=== PATIENT | female | born 1940 | race Caucasian/White ===

== ENCOUNTER 2016-12-04 12:52 | Inpatient (IN) | payer MEDICARE ==
[~2016-12-04] VITALS: Ht 157.5 cm; Wt 62.4 kg
[2016-12-22] MEDS ORDERED: CRAN500C9 PO (11:56)
[2016-12-22] MEDS ORDERED: VITA-136 PO (11:56)
[2016-12-22] MEDS ORDERED: FOSI10TA PO (11:56)
[2016-12-22] MEDS ORDERED: OMEP20TA PO (11:56)
[2016-12-22] MEDS ORDERED: ROSU10 PO (11:56)
[2016-12-22] MEDS ORDERED: ASPI81TA5 PO (11:56)
[2016-12-22] MEDS ORDERED: MULT-65 PO (11:56)
[2016-12-22] MEDS ORDERED: NIAC500T5 PO (11:56)
[2016-12-22] MEDS ORDERED: GARL580C PO (11:56)
[2016-12-22] MEDS ORDERED: CARB200T PO (11:56)
[2016-12-22] MEDS ORDERED: BYST5TAB2 PO (11:56)
[2016-12-22] MEDS ORDERED: LEVO25TA4 PO (11:56)
[2016-12-22] MEDS ORDERED: CELE200C PO (11:56)
[2016-12-22] MEDS ORDERED: FLUC100T2 PO (11:56)
[2016-12-22] MEDS ORDERED: CALC1TAB87 PO (11:56)
[2016-12-22] MEDS ORDERED: VITACAP7 PO (11:56)
[2016-12-24] MEDS ORDERED: CHLORHEXIDINE GLUCONATE 2 % 1 PACK (2 CLOTHS) TOPICAL PRN (06:00)
[2016-12-24] MEDS ORDERED: ceFAZolin 2 GM PREMIX 50 ML IV SCH (06:00)
[2016-12-24] MEDS ORDERED: SODIUM CHLORID 0.9% 500 ML IV PRN (06:00)
[2016-12-24] MEDS ORDERED: METOPROLOL TARTRATE 25 MG TAB PO PRN (06:00)
[2016-12-24] MEDS ORDERED: INSULIN HUMAN REGULAR 1,000 UNITS/10 ML VIAL SQ PRN (06:00)
[2016-12-24] MEDS ORDERED: POVIDONE IODINE 5% (ANTISEPSIS KIT) 4 APPLICATIONS EACH NARE PRN (06:00)
[2016-12-24] MEDS ORDERED: POVIDONE IODINE 7.5% SCRUB 118 ML BOTTLE TOPICAL SCH (06:00)
[2016-12-24] MEDS ORDERED: DEXAMETHASONE SOD PHOS 20 MG/5 ML VIAL IV ONE (06:30)
[2016-12-24] MEDS: LACTATED RINGER'S 1000 ML IV PRN ×2 (06:30→06:40)
[2016-12-24] MEDS: VANCOMYCIN 1000 MG/NS 250 ML (for <70 kg) IV SCH ×4 (06:50→07:05)
--- NOTE | 2016-12-24 07:15 | HHI.DCPOC ---
Discharge Care Plan Diagnosis: (1) Primary localized osteoarthrosis, lower leg (2) Status post total knee replacement, right Your Health Problems Are: Difficulty with ADL Goals to Promote Your Health * To prevent worsening of your condition and complications * To maintain your health at the optimal level Directions to Meet Your Goals Take your medications as prescribed Follow your dietary instruction Follow activity as directed Keep your appointments as scheduled Take your immunizations and boosters as scheduled If your symptoms worsen call your PCP, if no PCP go to Urgent Care Center or Emergency Room Smoking is Dangerous to Your Health. Avoid second hand smoke Call the 24-hour hour crisis hotline for domestic abuse at Landon Metz Dec 24, 2016 07:15
--- NOTE | 2016-12-24 07:16 | HHI.FF ---
Face to Face Verification Diagnosis: (1) Primary localized osteoarthrosis, lower leg (2) Status post total knee replacement, right Physical Therapy Gait training, Transfer training, bed to chair Knee: Total knee Right LE Weight Bearing: WB as tolerated Right LE Range of Motion: Active ROM Nursing Nursing: Conner teaching, Dressing changes Dressing Changes: Daily dressing change I have seen patient Tamia Guzman on 12/24/16. My clinical findings support the need for the requested home health care services because: Limited ability to care for self High risk of falls I certify that my clinical findings support that this patient is homebound because: Post-op weakness Unsteady gait/balance Landon Metz Dec 24, 2016 07:16
[2016-12-24] MEDS ORDERED: CPMMACHINE (07:18)
[2016-12-24] MEDS ORDERED: WALKER WHEELS/F1 MIS (07:18)
[2016-12-24] MEDS ORDERED: COMMODE 3-IN-11 MIS (07:18)
[2016-12-24] MEDS ORDERED: APREPITANT 40 MG CAP ONE (07:32)
[2016-12-24] MEDS ORDERED: GENTAMICIN SULFATE 80 MG/2 ML VIAL ONE (07:34)
[2016-12-24] MEDS ORDERED: TRANEXAMIC ACID IV SCH ×2 (08:30→12:00)
[2016-12-24] MEDS ORDERED: SODIUM CHLORIDE 0.9% IV SCH ×2 (08:30→12:00)
[2016-12-24] MEDS ORDERED: ROPIVACAINE PERI-ARTICULAR INJECTION. P-ARTICULR SCH ×5 (08:30)
[2016-12-24] MEDS ORDERED: BUPIVACAINE LIPOSOME PF 1.3% 20 ML VIAL ONE (09:10)
[2016-12-24] MEDS ORDERED: ALUMINUM/MAGNESIUM/SIMETH 30 ML CUP PO PRN (10:00)
[2016-12-24] MEDS ORDERED: Post-op Orders (for Pharmacy) MISC XX ONE (10:00)
[2016-12-24] MEDS ORDERED: BISACODYL 10 MG SUPP RECTAL PRN (10:00)
[2016-12-24] MEDS ORDERED: SODIUM CHLORIDE 0.9% FLUSH 5 ML FLUSH IVF PRN (10:00)
[2016-12-24] MEDS ORDERED: ONDANSETRON HCL 4 MG/2 ML VIAL IVP PRN (10:00)
[2016-12-24] MEDS ORDERED: traMADol HCL 50 MG TAB PO PRN ×2 (10:00)
[2016-12-24] MEDS ORDERED: diphenhydrAMINE HCL 50 MG/ML VIAL IV PRN (10:00)
[2016-12-24] MEDS ORDERED: NALOXONE HCL 0.4 MG/ML AMP IV PRN (10:00)
[2016-12-24] MEDS ORDERED: ACETAMINOPHEN 325 MG TAB PO PRN (10:00)
[2016-12-24] MEDS ORDERED: MORPHINE SULFATE 4 MG/ML INJ IV PUSH PRN (10:00)
[2016-12-24] MEDS ORDERED: MAGNESIUM HYDROXIDE SUSP 30 ML CUP PO PRN (10:00)
--- NOTE | 2016-12-24 10:05 | PD.OP ---
cc: Owen Caceres MD Operative Report Date of Surgery: Dec 24, 2016 Preoperative Diagnosis: Right knee severe osteoarthritis Postoperative Diagnosis: Same Procedure: Right total knee arthroplasty Anesthesia: Spinal and adductor canal block Surgeon: Owen Caceres Mangle Roll Operator(s): PAULETTE Saeed The surgical procedure was assisted by my Advanced Registered Nurse Practitioner. My SURGICAL COORDINATOR presence was necessary throughout this case for the manipulation and positioning of the surgical extremity. My SURGICAL COORDINATOR was assisting me throughout the duration of this procedure. The skill set of an Advance Registered Nurse Practitioner was medically necessary to complete this procedure. During the surgical case, the corporate technical recruiter was working at the back table and the Advance Registered Nurse Practitioner was directly assisting me. Operation and Findings: IMPLANTS: DePuy Attune: Patella: size 32. Femur, posterior stabilized size 5. Tibia, rotating platform size 4. Tibial insert, rotating platform, posterior stabilized size 6 mm thickness. ESTIMATED BLOOD LOSS: 150 cc TOURNIQUET TIME: 36 minutes at 250 mmHg pressure. JUSTIFICATION FOR PROCEDURE: The patient has end-stage osteoarthritis to the knee. There is an attached conservative measures pathway form in the chart that describes the nonoperative measures that were undertaken prior to consideration of surgical management. The patient understood the risks and benefits of surgical management. See my office notes for further details PROCEDURE: The patient was brought back to the operative theatre. Adequate anesthesia was obtained. The patient received intravenous vancomycin and Ancef. The lower extremity was prepped and draped in the usual sterile fashion.The leg was exsanguinated, the tourniquet was raised. A standard anterior incision was performed followed by medial parapatellar arthrotomy was performed. End-stage arthritis was identified. Osteotomy of the patella was performed. We drilled holes for the patella. We trialed the patella component. We placed an intramedullary guide into the distal femur. We ultimately resected 13 mm off of the distal femur in 5 degrees of valgus. The remnants of the ACL and PCL were resected. Osteotomy of the proximal tibia was performed, resecting 5 mm off of the medial side. This was done with 3 degrees of posterior slope using an extramedullary guide. The distal end of the guide was placed in the mid aspect of the ankle. The femur was sized, and four chamfer cuts were completed in 3 of external rotation. We then cut the central box in the distal femur to replace the PCL. We resected the remnants of the menisci and removed osteophytes off of the femur and tibia. We then trialed the knee. We punched the tibia for the keel, and then used standard technique to cement in components. Excess cement was removed. We trialed the knee again and the final polyethylene thickness was chosen to provide extension to 0 degrees, and flexion of 140 degrees to gravity. The ligaments were appropriately balanced. Lateral release was necessary to obtain excellent patellofemoral tracking. The tourniquet was released and adequate hemostasis was obtained. An intra- articular injection of a ropivacaine cocktail was injected. The posterior knee was inspected for excess cement, which was removed. The final polyethylene was put into position after thorough irrigation. We then closed deep fascia with a #2 Stratafix followed by skin with 2-0 Vicryl followed by mihai. Postop plan is to weight-bear as tolerated. DVT prophylaxis will be performed with Rina, JOSÉ MIGUEL fair, early mobilization, and Lovenox followed by aspirin. Owen Caceres MD Dec 24, 2016 10:05
[2016-12-24] MEDS ORDERED: ENOX40P SQ (10:07)
[2016-12-24] MEDS ORDERED: ASPI325T PO (10:07)
[2016-12-24] MEDS ORDERED: ULTR50TA5 PO (10:07)
[2016-12-24] MEDS ORDERED: DO NOT ADM ANY ANTICOAGULANT DRUGS PRN (10:26)
--- NOTE | 2016-12-24 10:29 | PD.CONS ---
HPI Service [facility] Hospitalists Consult Requested By Dr. Owen Caceres Reason for Consult Medical management Primary Care Physician Deedee Gardner M.D. Diagnoses: History of Present Illness Mrs. Guzman is a 76 y/o female with HTN, Hyperlipidemia, Hypothyroidism and osteoarthritis. She was admitted to [facility] on 12/24/16 for right total knee arthroplasty which was performed by Dr. Caceres. [facility] Hospitalist team was consulted to help with medical management. Pt is seen post-operatively and is without any specific complaints. Pt states that she is on Fosinopril and Bystolic for her BP. She also takes Tegretol but for a reported hx of trigeminal neuralgia and ?[place] palsy. She is doing well post-operatively She does not have a catheter in place. She reports that her pain is controlled currently. Pt requests to have Tylenol #3 instead of the Ultram. She has had adverse reactions to Percocet and [place] previously with feeling "foggy headed and confused." Pt is planned for discharge to home with [facility] possible tomorrow. Review of Systems Constitutional: DENIES: Fever, Chills Eyes: DENIES: Vision loss Ears, nose, mouth, throat: DENIES: Hearing loss Respiratory: DENIES: Cough, Shortness of breath Cardiovascular: DENIES: Chest pain, Lower Extremity Edema Gastrointestinal: DENIES: Abdominal pain, Nausea, Vomiting Genitourinary: DENIES: Hematuria, Dysuria Musculoskeletal: DENIES: Back pain Integumentary: DENIES: Rash Neurologic: DENIES: Headache Psychiatric: DENIES: Confusion Past Family Social History Past Medical History HTN Hyperlipidemia Hypothyroidism Osteoarthritis Trigeminal Neuralgia Pt denies any hx of seizure disorder, 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 Past Surgical History Appendectomy Lap Madai D&C Edwin fundoplication Bilateral inguinal hernia repair in 1967 Knee arthroscopy Carpal tunnel surgery (left wrist) Salpingo-oophorectomy (1968) JUAN and unilateral salpingo-oophorectomy in 1970 Tonsillectomy Reported Medications -Crestor 10 Mg PO 2XWEEK ?Fluconazole 100 Mg PO DAILY -Celebrex 200 Mg PO BID PRN -Omeprazole 20 Mg PO DAILY -Niacin 500 Mg PO DAILY -Bystolic 5 Mg PO DAILY -Levothyroxine 25 Mcg PO DAILY -Fosinopril 10 Mg PO DAILY -Carbamazepine 200 Mg PO BID -Aspirin DR 81 Mg PO DAILY Multi-Vitamin Daily (Multiple Vitamin) 1 Tab Tab 1 Tab PO DAILY B Complex (B-Complex Vitamins) 1 Cap 1 Cap PO DAILY Cranberry (Cranberry Fruit Extract) 500 Mg Capsule 600 Mg PO BID PT STATES CHANGES/INCREASES DOSE WHEN SHE THINKS SHE MAY BE PRONE TO UTI Calcium 600 with Vitamin D (Calcium Carbonate-Cholecalciferol) 600-400 mg-Unit Tab 1 Tab PO DAILY Garlic 580 Mg Capsule 1,000 Mg PO DAILY Vitamin E (Vitamin E Acetate) 400 Unit Capsule 1 Caplet PO DAILY Allergies: Coded Allergies: acetaminophen (Verified Allergy, Severe, Confusion, 12/24/16) hydrocodone (Verified Allergy, Severe, Confusion, 12/24/16) oxycodone (Verified Allergy, Severe, Confusion, 12/24/16) Uncoded Allergies: STATINS (Adverse Reaction, Unknown, MUSCLE WEAKNESS, 06/13/13) INTERMEDIATE Family History Son from lung cancer at age 55 Father from oral cancer at age 79 Social History Denies any alcohol, tobacco or illicit drug use Pt is and has 6 children Pt is a retired nurse, worked for [employer] Physical Exam Vital Signs Vital Signs Date Time Temp Pulse Resp B/P (MAP) Pulse Ox O2 Delivery O2 Flow Rate FiO2 12/24/16 06:35 98.8 85 16 157/96 (116 98 Physical Exam GENERAL: This is a well-nourished, well-developed patient, in no apparent distress. HEENT: Atraumatic. Normocephalic. No temporal or scalp tenderness. No scleral icterus. Airway patent. NECK: Trachea midline, supple, nontender. CARDIO: Regular. RESP: CTA bilaterally. No wheezes, rales, or rhonchi. ABD: +BS, soft, non-tender, nondistended. EXT: Right knee bandages are c/d/i, RLE in CPM machine NEURO: Awake and alert. Motor and sensory grossly within normal limits. Normal speech. Assessment and Plan Problem List: (1) Primary localized osteoarthrosis, lower leg ICD Codes: M17.10 - Unilateral primary osteoarthritis, unspecified knee Status: Chronic Plan: - Pt is a 76 y/o female with HTN, hyperlipidemia, and osteoarthritis. - She was admitted on 12/24/16 for right total knee arthroplasty which was performed by Dr. Caceres. - Pt requests to have Tylenol #3 instead of the Ultram for pain control PRN - PT daily - IS - Constipation precautions - Supportive care - Pt is planned for discharge to home with [facility] possible tomorrow. (2) Status post total knee replacement, right ICD Codes: Z96.651 - Presence of right artificial knee joint Plan: - See above. (3) HTN (hypertension) ICD Codes: I10 - Essential (primary) hypertension Status: Chronic Plan: - Home meds resumed - Monitor (4) Hyperlipidemia ICD Codes: E78.5 - Hyperlipidemia, unspecified Status: Chronic Plan: - Home meds resumed (5) History of trigeminal neuralgia ICD Codes: Z86.69 - Personal history of other diseases of the nervous system and sense organs Status: Chronic Plan: - She reportedly takes Tegretol but for a hx of trigeminal neuralgia and ?[place] palsy. - She denies any hx of seizure disorder. Assessment and Plan Patient examined. Assessment and plan formulated with Ct Escudero PA-C. I agree with the above. right tka. pt requested tylenol 3 only for pain. dvt prophylaxis IS Plan for d/chome with h[facility]/pt tomorrow. Problem Qualifiers (1) Primary localized osteoarthrosis, lower leg: Qualified Codes: M17.11 - Unilateral primary osteoarthritis, right knee (2) HTN (hypertension): Qualified Codes: I10 - Essential (primary) hypertension Ct Escudero Dec 24, 2016 10:29 Juni Thompson MD Dec 24, 2016 13:38
[2016-12-24] MEDS: SODIUM CHLOR 0.9% 1000 ML INJ 1,000 ML IV SCH ×2 (10:30→20:45)
[2016-12-24] MEDS ORDERED: MIDAZOLAM HCL 2 MG/2 ML VIAL ONE (10:33)
--- NOTE | 2016-12-24 11:11 | RADRPT ---
EXAM DATE/TIME: 12/24/2016 10:54 [place] COMPARISON: No previous studies available for comparison. INDICATIONS : Post-op total right knee replacement. MEDICAL HISTORY : None. SURGICAL HISTORY : None. ENCOUNTER: Initial ACUITY: 1 day PAIN SCORE: 0/10 LOCATION: Right knee FINDINGS: Patient is status post right total knee arthroplasty. Skin mihai, subcutaneous air and a small knee joint effusion present. The tibial and femoral components appear well seated. No fractures. CONCLUSION: Expected postoperative changes of right total knee arthroplasty. Salo Saini MD on December 24, 2016 at 11:08 Board Certified Radiologist. This report was verified electronically.
[2016-12-24 12:00] VITALS: BP 162/83; PULSE 83; RESP 17; TEMP 96.3; O2SAT 94
[2016-12-24] MEDS ORDERED: ATORVASTATIN 20 MG TAB PO SCH (12:00)
[2016-12-24] MEDS ORDERED: ACETAMINOPHEN/CODEINE 300 MG/30 MG TAB PO PRN (13:00)
[2016-12-24] MEDS ORDERED: PROPOFOL 200 MG/20 ML AMP IV ONE (13:20)
[2016-12-24 16:00] VITALS: BP_SYST 122; BP_SYST 125; BP_SYST 134; BP_DIAS 58; BP_DIAS 66; BP_DIAS 76; PULSE 88; RESP 17; TEMP 97.8; O2SAT 99
[2016-12-24] MEDS: carBAMazepine 200 MG TAB PO SCH (20:19)
[2016-12-24 20:20] VITALS: BP 110/58; PULSE 80; RESP 16; TEMP 96.7; O2SAT 94
[2016-12-24] MEDS: SODIUM CHLORIDE 0.9% FLUSH 5 ML FLUSH IVF SCH (20:20)
[2016-12-24] MEDS ORDERED: ZOLPIDEM TARTRATE 5 MG TAB PO PRN (21:00)
[2016-12-24] MEDS: ACETAMINOPHEN/CODEINE 300 MG/30 MG TAB PO PRN (22:26)
[2016-12-25 00:45] VITALS: BP 106/54; PULSE 81; RESP 17; TEMP 96.8; O2SAT 95
[2016-12-25 04:45] VITALS: BP 105/53; PULSE 93; RESP 16; TEMP 97; O2SAT 98
[2016-12-25] MEDS: SODIUM CHLOR 0.9% 1000 ML INJ 1,000 ML IV SCH ×2 (05:58→10:29)
[2016-12-25] MEDS ORDERED: LEVOTHYROXINE SODIUM 25 MCG TAB PO SCH (06:00)
[2016-12-25 07:13] LABS: MEAN CELL VOLUME 92.9 FL (80.0-100.0); MEAN CORPUSCULAR HEMOGLOBIN 31.9 PG (27.0-34.0); MEAN CORPUSCULAR HGB CONC 34.3 % (32.0-36.0); PLATELET COUNT 236 TH/MM3 (150-450); RED BLOOD COUNT 3.01 MIL/MM3 (4.00-5.30); RED CELL DISTRIBUTION WIDTH 12.5 % (11.6-17.2); REVIEW FLAG FINAL; WHITE BLOOD COUNT 10.8 TH/MM3 (4.0-11.0)
[2016-12-25] MEDS ORDERED: DEXAMETHASONE SOD PHOS 20 MG/5 ML VIAL IV ONE (07:45)
[2016-12-25] MEDS: ACETAMINOPHEN/CODEINE 300 MG/30 MG TAB PO PRN ×2 (07:48→12:42)
[2016-12-25] MEDS: carBAMazepine 200 MG TAB PO SCH (07:48)
[2016-12-25] MEDS: SODIUM CHLORIDE 0.9% FLUSH 5 ML FLUSH IVF SCH (07:54)
[2016-12-25 08:00] VITALS: BP 151/88; PULSE 98; RESP 17; TEMP 97.5; O2SAT 98
[2016-12-25] MEDS ORDERED: NIACIN 100 MG TAB PO SCH (09:00)
[2016-12-25] MEDS ORDERED: PANTOPRAZOLE SOD 20 MG DELAYED RELEASE TAB PO SCH (09:00)
[2016-12-25] MEDS ORDERED: NEBIVOLOL 5 MG TAB PO SCH (09:00)
[2016-12-25] MEDS ORDERED: LISINOPRIL 10 MG TAB PO SCH (09:00)
[2016-12-25] MEDS ORDERED: FLUCONAZOLE 100 MG TAB PO SCH ×2 (09:00→21:00)
[2016-12-25] MEDS ORDERED: ENOXAPARIN SODIUM 40 MG/0.4 ML SYRINGE SQ SCH (09:30)
[2016-12-25 11:29] VITALS: BP 114/57; PULSE 93; RESP 16; TEMP 97.4; O2SAT 95
--- NOTE | 2016-12-25 12:18 | PD.ORT.PN ---
Subjective Post Op Day #: 1 Subjective Remarks The patient is resting in bed in NAD. Patient states pain is mild. Patient requesting to go home with home health today. Objective Vitals Vital Signs Date Time Temp Pulse Resp B/P (MAP) Pulse Ox O2 Delivery O2 Flow Rate FiO2 12/25/16 11:29 97.4 93 16 114/57 (76) 95 Manual Cuff/Auscultation 12/25/16 08:00 97.5 98 17 151/88 (109) 98 12/25/16 04:45 97.0 93 16 105/53 (70) 98 12/25/16 00:45 96.8 81 17 106/54 (71) 95 12/24/16 20:20 96.7 80 16 110/58 (75) 94 12/24/16 16:00 97.8 88 17 125/76 (92) 99 122/66 (84) 134/58 (83) I/O 12/24/16 12/24/16 12/24/16 12/25/16 12/25/16 12/25/16 06:59 14:59 22:59 06:59 14:59 22:59 Intake Total 463 ml 340 ml 340 ml Output Total 100 ml Balance 363 ml 340 ml 340 ml Intake Oral 220 ml 240 ml 240 ml IV Total 243 ml 100 ml 100 ml Output Estimated Blood Loss 100 ml # Voids 1 2 3 # Bowel Movements 0 0 0 Result Diagram: 12/25/16 0607 Procedures Right TKA Objective Remarks The patient's dressing was changed with no drainage. Patient has no redness or s/s of infection. Incision is well approximated with surgical clips intact. Patient's calf is soft and nontender. EHL/TA/G intact. 2+ pedal pulse. + SILT. Assessment & Plan Ortho Post Op Day #: 1 Problem List: Assessment and Plan POD #1: Right TKA 1. WBAT RLE 2. Lovenox followed by ASA for DVT prophylaxis 3. Ice to the right knee PRN 4. Stable for discharge home with home health today 5. F/U in the office as previously scheduled with Dr. Caceres or PAULETTE Begum Daniel Scott ARNP Dec 25, 2016 12:18
[2016-12-25] MEDS ORDERED: TYLETAB34 PO (12:21)
[2016-12-25] MEDS ORDERED: MULTIVITAMINS/MINERALS THERAPEUTIC TAB PO SCH (21:00)
[2016-12-25] MEDS ORDERED: DOCUSATE SODIUM 100 MG CAP PO SCH (21:00)
--- NOTE | 2016-12-28 13:23 | HHI.DS ---
Discharge Summary Admission Date Dec 24, 2016 at 05:26 Discharge Date: Dec 25, 2016 Admitting Diagnosis Primary localized OA, lower leg Status post total knee replacement, right Diagnosis: (1) Primary localized osteoarthrosis, lower leg Diagnosis: Principal ICD Codes: M17.10 - Unilateral primary osteoarthritis, unspecified knee Status: Chronic (2) Status post total knee replacement, right Diagnosis: Principal ICD Codes: Z96.651 - Presence of right artificial knee joint Procedures Right TKA Brief History This is a 76 year old female patient with severe OA of the right knee. CBC/BMP: 12/25/16 0607 PE at Discharge The patient's dressing was changed with no drainage. Patient has no redness or s/s of infection. Incision is well approximated with surgical clips intact. Patient's calf is soft and nontender. EHL/TA/G intact. 2+ pedal pulse. + SILT. Hospital Course The patient was admitted to the hospital for severe OA of the right knee to have a right total knee arthroplasty. The patient's procedure went well without complication. The patient is WBAT on the right LE. The patient is on a regular diet. The patient was placed on Lovenox followed by ASA for DVT prophylaxis. The patient was discharged home with home health and will f/u with Dr. Caceres or PAULETTE Begum in the office as previously scheduled. Pt Condition on Discharge: Stable Discharge Disposition: Disch w/ Home Health Serv Discharge Instructions Diet Instructions: As Tolerated, No Restrictions Activities You Can Perform: Weight Bearing as [place] Activities to Avoid: Strenuous Activity Follow up Referrals: Orthopedics with Owen Caceres MD [facility]/ with [facility] New Medications: Acetaminophen-Codeine (Tylenol-Codeine #3) 300-30 mg Tab 1-2 TAB PO q4-6 hr PRN for PAIN, #60 TAB 0 Refills Aspirin (Aspirin) 325 Mg Tab 325 MG PO DAILY for Prevent Blood Clot, #30 TAB 0 Refills Start Aspirin after Lovenox is completed. Commode 3-in-1 (Commode 3-in-1) 1 Mis Mis EA .ROUTE DIRECTED, #1 0 Refills CPM-Continuous Passive Motion Machine (CPM-Continuous Passive Motion Machine) 1 Ea Device EA .ROUTE DIRECTED, #1 0 Refills Enoxaparin Inj (Lovenox Inj) 40 Mg/0.4 Ml Syr 40 MG SQ DAILY for Blood Clot Prevention for 10 Days, #10 SYRINGE 0 Refills Start Aspirin after Lovenox is completed. Walker with Front Wheels (Walker with Front Wheels) 1 Mis Mis EA .ROUTE DIRECTED, #1 0 Refills Continued Medications: B-Complex Vitamins (B Complex) 1 Cap 1 CAP PO DAILY for Nutritional Supplement, #30 CAP 0 Refills Calcium Carbonate-Cholecalciferol (Calcium 600 with Vitamin D) 600-400 mg-Unit Tab 1 TAB PO DAILY for Calcium Supplement, TAB 0 Refills Carbamazepine (Carbamazepine) 200 Mg Tab 200 MG PO BID, #60 TAB 0 Refills Cranberry Fruit Extract (Cranberry) 500 Mg Capsule 600 MG PO BID PT STATES CHANGES/INCREASES DOSE WHEN SHE THINKS SHE MAY BE PRONE TO UTI Fluconazole (Fluconazole) 100 Mg Tab 100 MG PO DAILY for Infection, TAB 0 Refills Fosinopril (Fosinopril) 10 Mg Tab 10 MG PO DAILY, #30 TAB 0 Refills Garlic (Garlic) 580 Mg Capsule 1000 MG PO DAILY Levothyroxine (Levothyroxine) 25 Mcg Tab 25 MCG PO DAILY for Thyroid, #30 TAB 0 Refills Multiple Vitamin (Multi-Vitamin Daily) 1 Tab Tab 1 TAB PO DAILY for Nutritional Supplement, TAB 0 Refills Nebivolol (Bystolic) 5 Mg Tab 5 MG PO DAILY for Blood Pressure Management, #30 TAB 0 Refills Niacin (Niacin) 500 Mg Tab 500 MG PO DAILY for Cholesterol Management, #30 TAB 0 Refills Omeprazole (Omeprazole) 20 Mg Tab 20 MG PO DAILY, #30 TAB 0 Refills Rosuvastatin (Crestor) 10 Mg Tab 10 MG PO 2XWEEK for Cholesterol Management, #30 TAB 0 Refills Discontinued Medications: Aspirin DR (Aspirin DR) 81 Mg Tabdr 81 MG PO DAILY, TAB 0 Refills Celecoxib (Celebrex) 200 Mg Cap 200 MG PO BID for Pain Management, CAP 0 Refills Vitamin E Acetate (Vitamin E) 400 Unit Capsule 1 CAPLET PO DAILY Landon Metz Dec 28, 2016 13:23
== END 2016-12-25 15:30 | disposition home health service (06) | DRG 470 ==
LOC: HSDI 12-24 05:26 → N06B 12-24 11:52
PROVIDERS: ADMIT Orthopaedic Surgery; ATTEND Orthopaedic Surgery
PROC: 3E0T3CZ (ICD-10-PCS; 2016-12-24)
PROC: 0SRC0J9 Replacement of Right Knee Joint with Synthetic Substitute, Cemented, Open Approach (ICD-10-PCS; principal; 2016-12-24 08:00)
DX: M17.11 Unilateral primary osteoarthritis, right knee (principal); M25.761 Osteophyte, right knee; I10 Essential (primary) hypertension; E78.5 Hyperlipidemia, unspecified; E03.9 Hypothyroidism, unspecified; G50.0 Trigeminal neuralgia; I25.10 Atherosclerotic heart disease of native coronary artery without angina pectoris; I25.2 Old myocardial infarction; Z88.5 Allergy status to narcotic agent; Z88.6 Allergy status to analgesic agent
CPT/HCPCS: 73560; 85027; 86850; 86900; 86901; 94150; C1776; C9290; J0171; J0690; J0735; J1100; J1580; J1650; J1885; J2250; J2270; J2405; J2795; J3370; J7030; J7050; J7120; J8501; L1830